=== PATIENT | female | born 1995 | race Caucasian/White ===

== ENCOUNTER 2020-02-18 18:42 | Emergency (ER) | payer OTHER ==
[~2020-02-18] VITALS: Ht 157.5 cm; Wt 61.2 kg
[2020-02-18 18:53] VITALS: BP 119/80
[2020-02-18] MEDS ORDERED: VITAMIN B-121000 MC2 SUBLING (18:59)
[2020-02-18] MEDS ORDERED: SPRINTEC1 EACH PO (18:59)
== END 2020-02-18 21:06 | disposition left against medical advice (07) ==
LOC: ER 18:42
DX: Z53.21 Procedure and treatment not carried out due to patient leaving prior to being seen by health care provider (principal)